=== PATIENT | female | born 1940 | race Caucasian/White ===

== ENCOUNTER 2019-05-06 07:49 | Observation (INO) | payer MEDICARE ==
[2019-05-06] VITALS (17 sets, daily range): BP systolic 132–162; BP diastolic 74–111
[~2019-05-06] VITALS: Ht 149.9 cm; Wt 60.3 kg
[~2019-05-06 07:49] MED LIST: B-1250 MCG; CITRACAL + D OR; MECLIZINE12.5 M1 PO; MULTIVITAMIN OR; NAMENDA XR21 MG PO; NAMENDA10 MG PO; PHENERGAN12.5 MG/TA PO; SIMVASTATIN10 MG PO; XANAX0.25 MG PO; ZOSTAVAX IM
--- NOTE | 2019-05-06 07:50 | NUR ---
[facility]
--- NOTE | 2019-05-06 08:02 | NUR ---
PT TO CT VIA STRETCHER BY REUBEN MURRIETA.
[2019-05-06 08:11] LABS: GFR > 60 ML/MIN (>=60 (CALC)); GFR FOR AFR.AMER. > 60 ML/MIN (>=60 (CALC))
[2019-05-06 08:14] LABS: HEMATOCRIT 40.8 % (37.0-47.0); HEMOGLOBIN 13.5 g/dl (12.0-16.0); IMMATURE GRANULOCYTES 0.3 % (0.0-5.0); MEAN CELL VOLUME 90.5 fL CALC (80.0-100.0); MEAN CORPUSCULAR HGB 29.9 pG CALC (26.0-32.0); MEAN CORPUSCULAR HGB CONC 33.1 g/L CALC (32.0-36.0); NEUT# 4.16 thou/uL (2.00-7.15); RED BLOOD COUNT 4.51 mill/uL (4.20-5.60); RED CELL DISTRI WIDTH 13.6 % (11.5-15.5)
[2019-05-06 08:25] LABS: ACT PARTIAL THROMBO TIME 23.5 SECONDS (20.0-32.5); INTERNATIONAL NORMALIZED RATIO 0.9 RATIO (0.7-1.3); PROTHROMBIN TIME 9.7 SECONDS (9.0-12.5)
[2019-05-06 08:26] LABS: ALBUMIN 4.5 g/dL (3.2-5.0); ALKALINE PHOSPHATASE 104 u/l (38-126); ANION GAP 15 (6-22 (CALC)); BILIRUBIN, TOTAL 0.4 mg/dL (0.0-1.4); BUN 12 mg/dL (8-23); BUN/CREATININE RATIO 20 (12-20 (CALC)); CARBON DIOXIDE 25 mmol/l (22-30); CHLORIDE 105 mmol/l (95-108); CREATININE 0.6 mg/dL (0.5-1.0); GFR > 60 ML/MIN (>=60 (CALC)); GFR FOR AFR.AMER. > 60 ML/MIN (>=60 (CALC)); POTASSIUM 4.7 mmol/l (3.5-5.1); SGOT/AST 41 u/l (9-36); SODIUM 140 mmol/l (137-146); TOTAL PROTEIN 7.2 g/dL (6.3-8.2)
--- NOTE | 2019-05-06 08:32 | NUR ---
PT RETURNED FROM CT SCAN, AT BEDSIDE TO ASSESS PT. PT RESTING COMFORTABLY IN STRECTCHER. NIH REMAINS AT A 2. PT AWARE OF PENDING RESULTS AND WAIT TIME. CALL TO ALEX.
[2019-05-06 08:34] LABS: MYOGLOBIN 41 ng/mL (0 - 62)
--- NOTE | 2019-05-06 09:00 | NUR ---
PT C/O INTERMITTENT PAIN TO RIGHT UPPER BACK 12/10. EKG SHOWING NSR AT THIS TIME. PT DENIES ANY CHEST PAIN OR SOB. NOTIFIED. NO NEW ORDERS RECEIVED.
--- NOTE | 2019-05-06 09:40 | NUR ---
PT AWARE OF CONTINUED WAIT TIME. PT DENIES ANY NEEDS AT THIS TIME AND DENIES ANY PAIN. PT ASSESSMENT REMAINS THE SAME AT THIS TIME. CALL ARIZA WITHIN REACH, AT BEDSIDE.
--- NOTE | 2019-05-06 09:55 | NUR ---
MD AT BEDSIDE TO DISCUSS RESULTS AND PLAN FOR ADMISSION.
--- NOTE | 2019-05-06 09:58 | NUR ---
PT INFOMRED REGISTRATION THAT SHE DOES NOT WANT TO STAY HERE AND STATES "MY DAUGHTER IS A RN AND TOLD ME NOT TO STAY HERE AND GO TO [facility]". MD AND CHARGE NURSE NOTIFIED. CHARGE NURSE AT BEDSIDE TO SPEAK WITH PATIENT.
[2019-05-06] MEDS ORDERED: MELOXICAM7.5 MG PO (10:06)
[2019-05-06] MEDS ORDERED: FOLIC ACID1 MG PO (10:07)
[2019-05-06] MEDS ORDERED: CYMBALTA20 MG PO (10:08)
[2019-05-06] MEDS ORDERED: RHEUMATREX2.5 M1 PO (10:08)
[2019-05-06] MEDS ORDERED: GABAPENTIN100 MG PO (10:08)
[2019-05-06] MEDS ORDERED: AMLODIPINE5 MG PO (10:09)
[2019-05-06] MEDS ORDERED: CALCIUM CITRATE1 TAB PO (10:09)
[2019-05-06] MEDS ORDERED: D3 20002000 UNIT PO (10:10)
[2019-05-06] MEDS ORDERED: MULTI VIT PO (10:10)
[2019-05-06] MEDS ORDERED: VITAMIN B-625 MG PO (10:11)
[2019-05-06] MEDS ORDERED: FISH OIL1000 MG PO (10:12)
[2019-05-06] MEDS ORDERED: MAGNESIUM GLYCINATE PO (10:12)
--- NOTE | 2019-05-06 10:32 | NUR ---
SPOKE WITH FAMILY ABOUT BEING ADMITTED TO HOSPITAL. PATIENTS DAUGHTER WHO WORKS OUT OF STATES WAS QUESTIONING OVER THE PHONE HAVING THE PATIENT TRANSFERED TO ANOTHER FACILITY. EMTALA REGULATIONS WERE EXPLAINED TO PATIENT AND FAMILY AND PATIENT DECIDING TO STAY
--- NOTE | 2019-05-06 10:45 | NUR ---
REPORT CALLED TO REUBEN MANNING.
--- NOTE | 2019-05-06 10:50 | NUR ---
PT AMBUALTED TO BATHROOM WITH A STEADY GAIT TO OBTAIN URINE SAMPLE. PT AWARE OF PLAN FOR TRANSFER TO ICE.
[2019-05-06 11:08] LABS: URINE BILIRUBIN - DIPSTICK NEGATIVE (NEGATIVE); URINE BLOOD DIPSTICK NEGATIVE (NEGATIVE); URINE COLOR YELLOW; URINE GLUCOSE - DIPSTICK NEGATIVE (NEGATIVE); URINE KETONE NEGATIVE (NEGATIVE); URINE LEUK ESTERASE NEGATIVE (NEGATIVE); URINE NITRITE - DIPSTICK NEGATIVE (Negative); URINE PH 7.5 (4.5-8.0); URINE PROTEIN - DIPSTICK NEGATIVE (NEG-TRACE); URINE SPECIFIC GRAVITY <=1.005; URINE UROBILINOGEN - DIPSTICK 0.2 E.U./dL (0.2)
--- NOTE | 2019-05-06 11:15 | NUR ---
Admission Note Report Given to: REUBEN MANNING Transported by: Wheelchair X Stretcher Transported with: X Nurse Transporter X Patent IV O2 X Evp Managing Director PT TO ICU 3 IN STABLE CONDTITION. PT CARE RELINQUISHED.
--- NOTE | 2019-05-06 11:16 | NUR ---
female pt received to ICU bed 3 via stretcher accompanied by Ruiz Gaspar RN in stable condition; pt ambulatory to bed with steady gait; Marlo Govea NP present at bedside; assessment completed at this time; pt alert and oriented; follows all commands; denies pain; no n/v noted; pt c/c of awakening this am and not feeling herself; pt later discovered right sided numbness tingling/ right ear, face, shoulder, arm and leg; pt continues with complaints of right sided numbness; resp even and unlabored; lungs clear bilat; skin color wnl; ra; hr reg; strong pulses; no edema noted; sr on monitor; abd soft with bs present; no bm noted per investment underwriter; pt admits to voiding without pain or burning; no urine to inspect at this time; #20 flushed and patent to lac; no redness or edema noted at site; pt request to leave pants on/ unable to assess coccyx; NIHSS completed per investment underwriter and JACQUARD FIXER; plan of care/ meds explained; call light within reach; will continue to monitor
--- NOTE | 2019-05-06 12:07 | NUR ---
awake in bed eating meal; no apparent distress noted; no changes in neuro status; iv intact; call light within reach; will continue to monitor
--- NOTE | 2019-05-06 12:29 | NUR ---
Dr Hernandez present at bedside to assess pt and discuss plan of care
--- NOTE | 2019-05-06 12:57 | NUR ---
pt awake in bed; offers no complaints; pt admits to decreased numbness to right face/ear however, numbness is still present; no decline in neuro status noted per typewriter operator automatic; spouse at bedside; in to medicate pt with norvasc; pt states "the doctor told me to just take my own meds"; pt has self administered home meds/norvasc held d/t pt taking own home medications; will continue to monitor
--- NOTE | 2019-05-06 14:00 | NUR ---
DECK OFFICER Xuan present at bedside; DECK OFFICER explained to pt to not take home medications; nursing staff will administer meds as ordered per provider; spouse had brought in bilat hearing aids and tablet for pt; pt belongings updated; neuro assessment completed with no changes; numbness continues to right face with slight improvement per pt; sr/pac on monitor; iv intact; will continue to monitor
--- NOTE | 2019-05-06 16:23 | NUR ---
awake in bed; offers no complaints; no distress noted; sr with freq pac on monitor; iv intact; pt continues with numbness to right side/ no change from prev documented; assisted to bed; steady gait; no neuro changes noted; will continue to monitor
--- NOTE | 2019-05-06 17:56 | NUR ---
awake in bed; no apparent distress noted; spouse present at bedside; sr/ freq pac on monitor; iv intact; no changes in assessment; NIH scaled at 2; call light within reach; will continue to monitor
--- NOTE | 2019-05-06 18:47 | NUR ---
PATIENT HAS VISITORS IN ROOM, CONVERSATES. NO ACUTE DISTRESS SHOWN.
--- NOTE | 2019-05-06 19:00 | NUR ---
PATIENT IS SITTING UP IN BED, ON ROOM AIR. SATS 94%, NO SOB NOTED. ALERT AND ORIENTED X4. HEAD TO TOE NURSING ASSESSMENT COMPLETED. NIH SCORE OF 1 FOR NUMBNESS ON RIGHT EAR AREA AND BACK OF RIGHT SHOULDER NUMBNESS PRESENT WITH TOUCH. SHE STATES, "FEELS ABOUT THE SAME," WHEN TESTING SENSATION DIFFERENCES ON BILATERAL EXTREMITIES WELL FACIAL. ANSWERS AND FOLLOWS COMMANDS PROPERLY. RAC 20 G INTACT AND FLUSHES PROPERLY, SALINE LOCKED. NO COMPLAINTS OF PAIN. AFEBRILE. ASSISTED STANDBY TO RESTROOM, NO DIFFICULTY WALKING OR NO GAIT DISTURBANCES NOTED. URINE YELLOW AND CLEAR, SMALL, FORMED BROWN BM. SITS UP IN BED 50 DEGREES AND IS READING A BOOK ON HER TABLET. EDUCATED ON POC FOR TONIGHT. CALL LIGHT WITHIN REACH.
--- NOTE | 2019-05-06 23:05 | NUR ---
NIH TEST PERFORMED ON PATIENT, NO CHANGES, SCORE IS STILL 1 FOR NUMBNESS ON R-EAR AND BACK OF RIGHT SHOULDER AT TOUCH. NO COMPLAINTS OF PAIN. WALKED TO RESTROOM WITHOUT DIFFICULTY. ON ROOM AIR. CALL LIGHT WITHIN REACH.
[2019-05-07] VITALS (12 sets, daily range): BP systolic 109–158; BP diastolic 60–88
--- NOTE | 2019-05-07 | NUR ---
PATIENT RESTING WITH EYES CLOSED LYING ON HER RIGHT SIDE. ON ROOM AIR. NO ACUTE DISTRESS SHOWN, CALL LIGHT WITHIN REACH.
--- NOTE | 2019-05-07 03:00 | NUR ---
PATIENT RSTING WITH EYES CLOSED, EASILY AROUSES. NIH TEST PERFORMED AND PATIENT SCORES A 1 FOR NUMBNESS IN R-EAR AND BACK OF R-SHOULDER WITH TOUCH. NO NEUROLOGICAL CHANGES NOTED. NO NEEDS OR COMPLAINTS AT THIS TIME. CALL LIGHT WITHIN REACH.
[2019-05-07 04:50] LABS: HEMATOCRIT 40.5 % (37.0-47.0); HEMOGLOBIN 13.2 g/dl (12.0-16.0); IMMATURE GRANULOCYTES 0.2 % (0.0-5.0); MEAN CELL VOLUME 91.6 fL CALC (80.0-100.0); MEAN CORPUSCULAR HGB 29.9 pG CALC (26.0-32.0); MEAN CORPUSCULAR HGB CONC 32.6 g/L CALC (32.0-36.0); NEUT# 4.95 thou/uL (2.00-7.15); RED BLOOD COUNT 4.42 mill/uL (4.20-5.60); RED CELL DISTRI WIDTH 13.5 % (11.5-15.5)
[2019-05-07 05:07] LABS: ALBUMIN 4.1 g/dL (3.2-5.0); ALKALINE PHOSPHATASE 100 u/l (38-126); ANION GAP 12 (6-22 (CALC)); BILIRUBIN, TOTAL 0.3 mg/dL (0.0-1.4); BUN 15 mg/dL (8-23); BUN/CREATININE RATIO 22 (12-20 (CALC)); CARBON DIOXIDE 25 mmol/l (22-30); CHLORIDE 107 mmol/l (95-108); CREATININE 0.7 mg/dL (0.5-1.0); GFR > 60 ML/MIN (>=60 (CALC)); GFR FOR AFR.AMER. > 60 ML/MIN (>=60 (CALC)); POTASSIUM 4.3 mmol/l (3.5-5.1); SGOT/AST 37 u/l (9-36); SODIUM 139 mmol/l (137-146); TOTAL PROTEIN 6.7 g/dL (6.3-8.2)
--- NOTE | 2019-05-07 07:00 | NUR ---
RECEIVED PT IN HIGH FOWLERS POSITION READING A BOOK. ASSESSMENT COMPLETE AT THIS TIME. ALERT AND ORIENTED X3. SEE SHIFT REVIEW, NEURO CHECK NEGATIVE OTHER THAN REPORTED NUMBNESS TO RIGHT EAR. PT REQUEST COFFEE. DENIES ANY OTHER NEEDS AT TIME. CALL LIGHT WITHIN REACH. DISCUSSED PLAN OF CARE.
--- NOTE | 2019-05-07 07:40 | NUR ---
REQUESTED HOME MED, METHOTREXATE, FROM PT. PT SATES SHE ONLY TAKES IT ON SUNDAYS SO SHE WON'T NEED IT FOR ANOTHER WEEK. PHARMACY AWARE. HOME MED NOT COLLECTED/ SENT TO PHARMACY.
--- NOTE | 2019-05-07 08:00 | NUR ---
PT TOLERATED BREAKFAST WELL.
--- NOTE | 2019-05-07 09:15 | NUR ---
PT WITH VISITORS AT BEDSIDE. CONVERSING. DENIES ANY NEEDS. TOLERATED AM MEDS WELL.
--- NOTE | 2019-05-07 10:07 | NUR ---
DR SOLIS IN TO SEE PT. PT AWAKE, ALERT TALKATIVE. PT REPORTS OCCASIONAL PALPITATIONS. PT NOTED TO BE SR WITH HR IN THE 60'S OCCASIONAL PACS'S. PT ALSO REPORTS OT "OXYGEN DROPPING" O2 SAT'S HAVE MAINTAINED ABOVE 95% ON ROOM AIR, DENIES COUGH, DENIES SHORTNESS OF BREATH.
--- NOTE | 2019-05-07 11:16 | NUR ---
Spoke with patient concerning home medications. Counseled on use and side effects of medications. Discussed use of OTC medications, herbals, and clarified medication list.
--- NOTE | 2019-05-07 11:23 | NUR ---
PT AMBULATED TO BATHROOM WITH STEADY GAIT. NO DIFFCULTY OR UNSTEADY GAIT NOTED. PT VOIDED LARGE AMOUNT OF URINE. TOLERATED WELL.
--- NOTE | 2019-05-07 13:30 | NUR ---
PT UP TO BSC FOR BM. TOLERATED WELL.
--- NOTE | 2019-05-07 13:46 | NUR ---
PT TO MRI VIA WHEELCHAIR.
--- NOTE | 2019-05-07 14:50 | NUR ---
PT RETURNED FROM MRI, PT BATHED SELF AT BEDSIDE. LINEN CHANGE PROVIDED. PT TOLERATED WELL.
--- NOTE | 2019-05-07 16:23 | NUR ---
AT PTS BEDSIDE. PT DENIES ANY NEEDS. NEURO ASSESSMENT NEGATIVE. NO SIGNS OF DISTRESS.
--- NOTE | 2019-05-07 17:02 | NUR ---
DR MCCULLOUGH IN TO SEE PT. AT BEDSIDE.
--- NOTE | 2019-05-07 17:31 | NUR ---
PT SET UP WITH DINNER TRAY. CONVERSING ON CELL PHONE.
--- NOTE | 2019-05-07 17:50 | NUR ---
PT UP TO VOID SEVERAL TIMES TODAY. TOLERATES AMBULATION WELL. GOOD APPETITE. DENIES ANY NEEDS.
--- NOTE | 2019-05-07 18:52 | NUR ---
REPORT FROM Gaston PIÑA RN. ASSUMED PT. CARE.
--- NOTE | 2019-05-07 19:50 | NUR ---
PT. FOUND SITTING UP IN BED AWAKE, ALERT, ORIENTED X 3. SEVILLA. JOHNNIE. NO NEURO DEFICITS NOTED. SKIN IS WARM AND DRY. AFEBRILE. RESPS EVEN AND UNLABORED. S1, S2 NOTED. SINUS RHTYHM WITH PVC. FOUND READING A BOOK ON ARRIVAL TO ROOM. PT. STATES HER ONLY SYMPTOM IS SOME DECREASED SENSATION TO RT. EAR/RT. SHOULDER/RT. FACE AREA. DENIES COMPLAINTS OF PAIN. MORTGAGE LOAN CLOSER STRENGTH INTACT. STRENGTH AT THE ANKLE AND KNEE 5/5. FACIAL SYMMETRY NOTED. LUNGS CTA. NO EDEMA NOTED. NO CAROTID BRUITS NOTED UPON AUSCULTATION BILATERALLY. CALL ARIZA REMAINS WITHIN REACH. WILL CONTINUE TO CLOSELY MONITOR.
--- NOTE | 2019-05-07 21:05 | NUR ---
PT. MEDICATED PER PHYSICIAN ORDERS. NO CHANGES TO NEURO STATUS. PT. REMAINS STABLE. DENIES COMPLAINTS OF PAIN OR NEED.
--- NOTE | 2019-05-07 22:08 | NUR ---
PT. DISCONNECTED FROM MONITOR AND ALLOWED TO AMBULATE TO RESTROOM AT THIS TIME. AMBULATORY WITH STEADY GAIT. DENIES COMPLAINTS OF DIZZINESS OR LIGHTHEADED. NO NEURO DEFICITS NOTED.
[2019-05-08] VITALS: BP 137/76
--- NOTE | 2019-05-08 00:18 | NUR ---
PT. REMAINS AWAKE, ALERT, ORIENTED X 3. NO NEURO DEFICITS NOTED. SPEECH CLEAR. SEVILLA. RESPS EVEN AND UNLABORED. CURTAIN PULLED FOR PRIVACY AND REDUCED LIGHT. CALL LIGHT REMAINS WITHIN REACH. PT. DENIES COMPLAINT OR NEED AT THIS TIME. WILL CONTINUE TO MONITOR.
[2019-05-08 02:00] VITALS: BP 141/71
--- NOTE | 2019-05-08 02:05 | NUR ---
PT. RESTING IN BED WITH EYES CLOSED IN NO DISTRESS. RESPS EVEN AND UNLABORED. VSS. CALL LIGHT REMAINS WITHIN REACH. WILL CONTINUE TO MONITOR.
[2019-05-08 04:00] VITALS: BP 130/59
--- NOTE | 2019-05-08 04:15 | NUR ---
LAB AT BEDSIDE AT THIS TIME. PT. REMAINS EASILY AROUSABLE TO LIGHT VERBAL STIMULI. AWAKE, ALERT, ORIENTED X 3. REMAINS AFEBRILE. RESPS REMAIN EVEN AND UNLABORED. MAE. BLAIR. CALL LIGHT REMAINS WITHIN REACH. WILL CONTINUE TO MONITOR.
[2019-05-08 04:36] LABS: HEMATOCRIT 40.4 % (37.0-47.0); HEMOGLOBIN 13.2 g/dl (12.0-16.0); IMMATURE GRANULOCYTES 0.4 % (0.0-5.0); MEAN CELL VOLUME 91.8 fL CALC (80.0-100.0); MEAN CORPUSCULAR HGB CONC 32.7 g/L CALC (32.0-36.0); NEUT# 4.72 thou/uL (2.00-7.15); RED BLOOD COUNT 4.4 mill/uL (4.20-5.60); RED CELL DISTRI WIDTH 13.4 % (11.5-15.5)
[2019-05-08 04:46] LABS: CHOLESTEROL HDL RATIO 4.2 (<4.4 (CALC))
[2019-05-08 04:47] LABS: ALBUMIN 4.1 g/dL (3.2-5.0); ALKALINE PHOSPHATASE 99 u/l (38-126); ANION GAP 14 (6-22 (CALC)); BILIRUBIN, TOTAL 0.4 mg/dL (0.0-1.4); BUN 19 mg/dL (8-23); BUN/CREATININE RATIO 30 (12-20 (CALC)); CARBON DIOXIDE 24 mmol/l (22-30); CHLORIDE 106 mmol/l (95-108); CREATININE 0.6 mg/dL (0.5-1.0); GFR > 60 ML/MIN (>=60 (CALC)); GFR FOR AFR.AMER. > 60 ML/MIN (>=60 (CALC)); MAGNESIUM 2.2 mg/dL (1.6-2.3); POTASSIUM 4.5 mmol/l (3.5-5.1); SGOT/AST 52 u/l (9-36); SODIUM 139 mmol/l (137-146); TOTAL PROTEIN 6.8 g/dL (6.3-8.2)
[2019-05-08 06:00] VITALS: BP 138/78
--- NOTE | 2019-05-08 06:08 | NUR ---
PT. AWAKE, ALERT, ORIENTED X 3. REMAINS WITHOUT NEURO DEFICITS NOTED. SKIN REMAINS WARM AND DRY. AMBULATORY WITH STEADY GAIT TO AND FROM RESTROOM AT THIS TIME. OFFERED TO TAKE PATIENT TO MED/SURG FOR A SHOWER, BUT DECLINES AT THIS TIME. WILL CONTINUE TO CLOSELY MONITOR.
--- NOTE | 2019-05-08 07:15 | NUR ---
RECEIVED PT IN HIGH FOWLERS POSITION, AWAKE, ON LAPTOP. PT DENIES ANY COMPLAINTS, STATES SHE FEELS MUCH BETTER THAN ARRIVAL AND NUMBNESS TO EAR HAS ALMOST RESOLVED COMPLETELY. PT SET UP WITH BREAKFAST TRAY. CALL LIGHT WITHIN REACH. DISCUSSED PLAN OF CARE.
[2019-05-08 07:38] VITALS: BP 138/86
--- NOTE | 2019-05-08 08:55 | NUR ---
PT TO BATHROOM, PT VOIDED AND HAD BM. TOLERATED EXERTION WELL. PT STATING DR MCCULLOUGH SAID SHE COULD BE DISCHARGED TODAY, DISCUSSED DECESION WOULD BE UP TO ATTENDING DR SOLIS. PT VOICES UNDERSTANDING.
[2019-05-08 09:15] VITALS: BP 138/86
--- NOTE | 2019-05-08 09:23 | NUR ---
am meds given. pt tolerated well.
--- NOTE | 2019-05-08 10:06 | NUR ---
Dr. Caballero at pts bedside. Discussed discharge and recommended follow up.
--- NOTE | 2019-05-08 10:45 | NUR ---
DISCHARGE INSTRUCTIONS DISCUSSED WITH PATIENT AND .DR MCCULLOUGH PHONE NUMBER GIVEN WITH DISCHARGE ORDERS. PT DENIES ANY QUESTIONS REGARDING INSTRUCTIONS.
== END 2019-05-08 10:42 | disposition home or self-care (01) ==
LOC: ED 07:49 → ED-I 09:38 → ED 09:58 → ICU 09:59
PROVIDERS: Emergency Medicine; Internal Medicine; Internal Medicine Nephrology; Nurse Practitioner Family; ADMIT Internal Medicine; ATTEND Internal Medicine
DX: G45.9 Transient cerebral ischemic attack, unspecified (principal); I10 Essential (primary) hypertension; M06.9 Rheumatoid arthritis, unspecified; F41.1 Generalized anxiety disorder; G62.9 Polyneuropathy, unspecified; I49.1 Atrial premature depolarization; E78.5 Hyperlipidemia, unspecified; Z79.899 Other long term (current) drug therapy
CPT/HCPCS: A9579; Q9967

== ENCOUNTER 2019-10-11 13:43 | Emergency (ER) | payer MEDICARE ==
[~2019-10-11] VITALS: Ht 149.9 cm; Wt 62.0 kg
[~2019-10-11 13:43] MED LIST changes: +AMLODIPINE5 MG PO; +CALCIUM CITRATE1 TAB PO; +CYMBALTA20 MG PO; +D3 20002000 UNIT PO; +FISH OIL1000 MG PO; +FOLIC ACID1 MG PO; +GABAPENTIN100 MG PO; +MAGNESIUM GLYCINATE PO; +MELOXICAM7.5 MG PO; +MULTI VIT PO; +RHEUMATREX2.5 M1 PO; +VITAMIN B-625 MG PO
[2019-10-11] MEDS ORDERED: ATORVASTATIN CA10 MG PO (15:01)
[2019-10-11] MEDS ORDERED: ELIQUIS5 MG PO (15:02)
[2019-10-11] MEDS ORDERED: FLECAINIDE100 MG PO (15:03)
[2019-10-11 16:00] VITALS: BP 131/85
== END 2019-10-11 16:00 | disposition home or self-care (01) ==
LOC: ED 13:43
DX: S83.92XA Sprain of unspecified site of left knee, initial encounter (principal); I10 Essential (primary) hypertension; X50.3XXA Overexertion from repetitive movements, initial encounter; Y93.41 Activity, dancing; Y92.009 Unspecified place in unspecified non-institutional (private) residence as the place of occurrence of the external cause

== ENCOUNTER 2020-02-17 | Emergency (ER) | payer MEDICARE ==
[~2020-02-17] MED LIST changes: +ATORVASTATIN CA10 MG PO; +ELIQUIS5 MG PO; +FLECAINIDE100 MG PO
[2020-02-17 08:21] LABS: HEMATOCRIT 39.6 % (37.0-47.0); HEMOGLOBIN 13.1 g/dl (12.0-16.0); IMMATURE GRANULOCYTES 0.2 % (0.0-5.0); MEAN CORPUSCULAR HGB 29.8 pG CALC (26.0-32.0); MEAN CORPUSCULAR HGB CONC 33.1 g/dL CAL (32.0-36.0); NEUT# 6.38 thou/uL (2.00-7.15); RED BLOOD COUNT 4.4 mill/uL (4.20-5.60); RED CELL DISTRI WIDTH 13.8 % (11.5-15.5)
[2020-02-17 08:33] LABS: ALBUMIN 4.1 g/dL (3.2-5.0); ALKALINE PHOSPHATASE 94 u/l (38-126); ANION GAP 11 (6-22 (CALC)); BUN 12 mg/dL (8-23); BUN/CREATININE RATIO 20 (12-20 (CALC)); CARBON DIOXIDE 28 mmol/l (22-30); CHLORIDE 103 mmol/l (95-108); CREATININE 0.6 mg/dL (0.5-1.0); GFR > 60 ML/MIN (>=60 (CALC)); GFR FOR AFR.AMER. > 60 ML/MIN (>=60 (CALC)); POTASSIUM 3.7 mmol/l (3.5-5.1); SGOT/AST 29 u/l (9-36); SODIUM 138 mmol/l (137-146); TOTAL PROTEIN 7.3 g/dL (6.3-8.2)
[2020-02-17 08:36] LABS: BILIRUBIN, TOTAL 0.2 mg/dL (0.0-1.4)
[2020-02-17] MEDS ORDERED: CLINDAMYCIN300 M1 PO (11:01)
[2020-02-17] MEDS ORDERED: MEDDOSEPAK PO (11:01)
[2020-02-17] MEDS ORDERED: LIDOCAINE HCL VIS2 % MT (11:01)
== END 2020-02-17 11:21 | disposition home or self-care (01) ==
PROVIDERS: Emergency Medicine
DX: J36 Peritonsillar abscess (principal); I67.1 Cerebral aneurysm, nonruptured; I10 Essential (primary) hypertension
CPT/HCPCS: Q9967

== ENCOUNTER 2023-06-05 13:16 | Inpatient (IN) | payer MEDICARE ==
[~2023-06-05] VITALS: Ht 147.3 cm; Wt 60.0 kg
[2023-06-05] VITALS (10 sets, daily range): BP systolic 123–152; BP diastolic 54–81
[~2023-06-05 13:16] MED LIST changes: +CLINDAMYCIN300 M1 PO; +LIDOCAINE HCL VIS2 % MT; +MEDDOSEPAK PO
[2023-06-05] MEDS ORDERED: CELECOXIB100 M1 (13:29)
[2023-06-05] MEDS ORDERED: DULOXETINE HCL20 MG (13:29)
[2023-06-05] MEDS ORDERED: METHOTREXATE S2.5 MG (13:30)
[2023-06-05] MEDS ORDERED: CARTIA XT180 MG (13:32)
[2023-06-05] MEDS ORDERED: SLOW-MAG PO (13:33)
[2023-06-05] MEDS ORDERED: ZINC50 M1 PO (13:34)
[2023-06-05] MEDS ORDERED: B121000 MC1 (13:35)
[2023-06-05] MEDS ORDERED: XARELTO20 MG PO (13:38)
[2023-06-05 13:55] LABS: BASO% 0.5 % (0-3); EOS% 1.7 % (0-8); HEMATOCRIT 43.6 % (37.0-47.0); HEMOGLOBIN 13.9 g/dl (12.0-16.0); IMMATURE GRANULOCYTES 0.2 % (0.0-5.0); LYMPH% 18.7 % (15-41); MEAN CELL VOLUME 92.8 fL CALC (80.0-100.0); MEAN CORPUSCULAR HGB 29.6 pG CALC (26.0-32.0); MEAN CORPUSCULAR HGB CONC 31.9 g/dL CAL (32.0-36.0); MONO% 8.1 % (2-13); NEUT# 8.59 thou/uL (2.00-7.15); NEUT% 70.8 % (42-76); RED BLOOD COUNT 4.7 mill/uL (4.20-5.60); RED CELL DISTRI WIDTH 13.7 % (11.5-15.5)
[2023-06-05 14:06] LABS: ALBUMIN 4.9 g/dL (3.2-5.0); ALKALINE PHOSPHATASE 116 u/l (38-126); ANION GAP 13 (6-22 (CALC)); BUN 15 mg/dL (8-23); BUN/CREATININE RATIO 21 (12-20 (CALC)); CARBON DIOXIDE 27 mmol/l (22-30); CHLORIDE 103 mmol/l (95-108); CREATININE 0.7 mg/dL (0.5-1.0); GFR FOR AFR.AMER. > 60 ML/MIN (>=60 (CALC)); GFR OTHER RACES > 60 ML/MIN (>=60 (CALC)); POTASSIUM 3.9 mmol/l (3.5-5.1); SGOT/AST 35 u/l (9-36); SODIUM 139 mmol/l (137-146); TOTAL PROTEIN 8.5 g/dL (6.3-8.2)
[2023-06-05 14:13] LABS: BILIRUBIN, TOTAL 0.4 mg/dL (0.02-1.3)
[2023-06-06 03:59] VITALS: BP 118/66
[2023-06-06 08:45] LABS: BASO% 0.4 % (0-3); EOS% 1.1 % (0-8); IMMATURE GRANULOCYTES 0.3 % (0.0-5.0); LYMPH% 16.1 % (15-41); MEAN CELL VOLUME 95.4 fL CALC (80.0-100.0); MEAN CORPUSCULAR HGB 30.4 pG CALC (26.0-32.0); MEAN CORPUSCULAR HGB CONC 31.9 g/dL CAL (32.0-36.0); MONO% 9.9 % (2-13); NEUT# 7.03 thou/uL (2.00-7.15); NEUT% 72.2 % (42-76); RED BLOOD COUNT 3.88 mill/uL (4.20-5.60); RED CELL DISTRI WIDTH 14.2 % (11.5-15.5)
[2023-06-06 08:46] LABS: HEMOGLOBIN 11.8 g/dl (12.0-16.0)
[2023-06-06 08:54] VITALS: BP 116/68
[2023-06-06 09:01] LABS: ALKALINE PHOSPHATASE 92 u/l (38-126); ANION GAP 12 (6-22 (CALC)); BUN 9 mg/dL (8-23); BUN/CREATININE RATIO 15 (12-20 (CALC)); CARBON DIOXIDE 25 mmol/l (22-30); CHLORIDE 104 mmol/l (95-108); CREATININE 0.6 mg/dL (0.5-1.0); GFR FOR AFR.AMER. > 60 ML/MIN (>=60 (CALC)); GFR OTHER RACES > 60 ML/MIN (>=60 (CALC)); POTASSIUM 4.1 mmol/l (3.5-5.1); SGOT/AST 30 u/l (9-36); SODIUM 137 mmol/l (137-146)
[2023-06-06 09:03] LABS: ALBUMIN 3.7 g/dL (3.2-5.0); BILIRUBIN, TOTAL 0.6 mg/dL (0.02-1.3); TOTAL PROTEIN 6.3 g/dL (6.3-8.2)
[2023-06-06 10:47] VITALS: BP 120/67
[2023-06-06] MEDS ORDERED: ZPAK PO ×2 (12:58→19:23)
[2023-06-06] MEDS ORDERED: VIBRAMYCIN100 M2 PO (20:28)
== END 2023-06-06 13:36 | disposition home or self-care (01) | DRG 192 ==
LOC: ED 13:16 → ED-I 18:00 → ED 18:21 → MS2 18:22
PROVIDERS: Family Medicine; Nurse Practitioner Family; ADMIT Student in an Organized Health Care Education/Training Program; ATTEND Student in an Organized Health Care Education/Training Program
DX: J44.1 Chronic obstructive pulmonary disease with (acute) exacerbation (principal); I10 Essential (primary) hypertension; I48.91 Unspecified atrial fibrillation; M06.9 Rheumatoid arthritis, unspecified; F41.1 Generalized anxiety disorder; E78.5 Hyperlipidemia, unspecified; G62.9 Polyneuropathy, unspecified; Z85.3 Personal history of malignant neoplasm of breast; Z20.822 Contact with and (suspected) exposure to COVID-19
CPT/HCPCS: Q9967

== ENCOUNTER 2025-01-25 19:43 | Emergency (ER) | payer MEDICARE ==
[~2025-01-25] VITALS: Ht 147.3 cm; Wt 58.0 kg
[2025-01-25] VITALS (7 sets, daily range): BP systolic 143–183; BP diastolic 87–153
[~2025-01-25 19:43] MED LIST changes: +ALPRAZOLAM0.25 MG PO; +ASPIRIN81 MG PO; +B121000 MC1 PO; +CARTIA XT180 MG; +CELECOXIB100 M1 PO; +CORDARONE/200 MG/TAB PO; +DULOXETINE HCL20 MG PO; +LOPRESSOR 550 MG/TAB PO; +LOPRESSOR50 M1 PO; +METHOTREXATE S2.5 MG; +METHYLPRED4 MG PO; +NORVASC PO; +SLOW-MAG PO; +TIADYLT ER180 MG PO; +VIBRAMYCIN100 M2 PO; +XARELTO15 MG PO; +XARELTO20 MG PO; +ZINC50 M1 PO; +ZPAK PO
[2025-01-25] MEDS ORDERED: Pantoprazole Sodium 40 MG VIAL (Protonix) IV STA (19:53)
[2025-01-25] MEDS ORDERED: SODIUM CHLORIDE 0.9% 1,000 ML IV STA ×2 (19:53→21:23)
[2025-01-25] MEDS ORDERED: PROMETHAZINE HCL 25 MG/ML AMP IV STA (19:53)
[2025-01-25] MEDS ORDERED: DIATRIZOATE MEGLUMINE & SODIUM 30 ML/BTL PO ONE (19:55)
[2025-01-25 20:23] LABS: BASO% 0.7 % (0-3); EOS% 0.4 % (0-8); HEMATOCRIT 42.2 % (37.0-47.0); HEMOGLOBIN 13.9 g/dl (12.0-16.0); IMMATURE GRANULOCYTES 0.7 % (0.0-5.0); LYMPH% 11.5 % (15-41); MEAN CORPUSCULAR HGB 29.6 pG CALC (26.0-32.0); MEAN CORPUSCULAR HGB CONC 32.9 g/dL CAL (32.0-36.0); MONO% 6.2 % (2-13); NEUT# 7.67 thou/uL (2.00-7.15); NEUT% 80.5 % (42-76); RED BLOOD COUNT 4.69 mill/uL (4.20-5.60); RED CELL DISTRI WIDTH 13.1 % (11.5-15.5)
[2025-01-25 20:32] LABS: ALBUMIN 4.7 g/dL (3.2-5.0); BILIRUBIN, TOTAL 0.5 mg/dL (0.02-1.3); CREATININE 0.6 mg/dL (0.5-1.0); POTASSIUM 4.1 mmol/l (3.5-5.1); TOTAL PROTEIN 7.4 g/dL (6.3-8.2)
[2025-01-25 22:19] LABS: URINE BILIRUBIN - DIPSTICK Negative (NEGATIVE); URINE BLOOD DIPSTICK Negative (NEGATIVE); URINE GLUCOSE - DIPSTICK Negative (NEGATIVE); URINE KETONE Negative (NEGATIVE); URINE NITRITE - DIPSTICK Negative (Negative); URINE PH 7.5 (4.5-8.0); URINE PROTEIN - DIPSTICK Negative (NEG-TRACE); URINE UROBILINOGEN - DIPSTICK 0.2 E.U./dL (0.2)
[2025-01-25 22:22] LABS: URINE COLOR Yellow; URINE LEUK ESTERASE Small (NEGATIVE)
[2025-01-25 22:29] LABS: URINE AMORPH SEDIMENT MODERATE hpf (NONE-FEW); URINE BACTERIA FEW hpf; URINE RBC 0-2 RBC/hpf (0-5)
[2025-01-25] MEDS ORDERED: PROMETHAZINE HY25 M1 PO (23:55)
[2025-01-26 00:04] VITALS: BP 155/78
[2025-01-26 00:06] VITALS: BP 155/78
== END 2025-01-26 00:06 | disposition home or self-care (01) ==
LOC: ED 19:43
PROVIDERS: Family Medicine
DX: R11.10 Vomiting, unspecified (principal); I10 Essential (primary) hypertension; E11.9 Type 2 diabetes mellitus without complications; Z86.73 Personal history of transient ischemic attack (TIA), and cerebral infarction without residual deficits; I48.92 Unspecified atrial flutter; M06.9 Rheumatoid arthritis, unspecified
CPT/HCPCS: J2470; J2550; Q9967